=== PATIENT | female | born 1990 | race Caucasian/White ===

== ENCOUNTER 2017-07-25 23:44 | Emergency (ER) | payer OTHER ==
[2017-07-26 00:18] LABS: Bilirubin Negative (Negative); Blood, Urine Negative (Negative); Glucose, Urine (Dipstick) Negative (Negative); Leukocyte Negative (Negative); Nitrite Negative (Negative); Protein, Urine (Dipstick) Negative (Neg-Trace); Specific Gravity, Urine 1.015 (1.005-1.030); Urobilinogen 0.2 mg/dL (0.2-1.0); pH, Urine 5.5 (5.0-9.0)
[2017-07-26 00:27] LABS: Clarity Hazy (Clear)
== END 2017-07-26 00:54 | disposition home or self-care (01) ==
LOC: MADERS 23:44
DX: O99.89 Other specified diseases and conditions complicating pregnancy, childbirth and the puerperium (principal); R30.0 Dysuria; O99.331 Smoking (tobacco) complicating pregnancy, first trimester; Z3A.08 8 weeks gestation of pregnancy
CPT/HCPCS: 81003; 99283

== ENCOUNTER 2022-05-15 21:19 | Emergency (ER) | payer MEDICAID, OTHER | END 2022-05-15 22:58 | disposition left against medical advice (07) | LOC: MADERS 21:19 | DX: Z53.21 Procedure and treatment not carried out due to patient leaving prior to being seen by health care provider (principal) ==

== ENCOUNTER 2022-07-19 22:35 | Emergency (ER) | payer OTHER ==
[2022-07-19] MEDS ORDERED: Ibuprofen 800 MG TAB ONE (23:54)
[2022-07-19] MEDS ORDERED: traMADol HCl 50 MG TAB ONE (23:54)
== END 2022-07-20 00:10 | disposition home or self-care (01) ==
LOC: MADERS 22:35
DX: S22.31XA Fracture of one rib, right side, initial encounter for closed fracture (principal); S00.01XA Abrasion of scalp, initial encounter; J98.4 Other disorders of lung; Y35.819A Legal intervention involving manhandling, unspecified person injured, initial encounter; F17.210 Nicotine dependence, cigarettes, uncomplicated
CPT/HCPCS: 70450; 71250